=== PATIENT | male | born 1960 | race African-American/Black ===

== ENCOUNTER 2021-09-12 12:04 | Emergency (ER) | payer OTHER ==
[~2021-09-12] VITALS: Ht 177.8 cm; Wt 100.0 kg
[2021-09-12] MEDS ORDERED: CRESTOR40 MG PO (12:13)
[2021-09-12] MEDS ORDERED: HYDROCHLOROT25 MG PO (12:13)
[2021-09-12] MEDS ORDERED: ZANTAC 36010 MG PO (12:14)
[2021-09-12] MEDS ORDERED: TYLENOL500 MG PO (12:15)
[2021-09-12 12:50] LABS: HEMATOCRIT 50.7 % (39.0-50.0); HEMOGLOBIN 16.4 g/dl (14.0-18.0); IMMATURE GRANULOCYTES 0.6 % (0.0-5.0); MEAN CORPUSCULAR HGB 30.1 pG CALC (26.0-32.0); MEAN CORPUSCULAR HGB CONC 32.3 g/dL CAL (32.0-36.0); NEUT# 3.05 thou/uL (1.82-7.42); RED BLOOD COUNT 5.45 mill/uL (4.70-6.10); RED CELL DISTRI WIDTH 12.9 % (11.5-15.5)
[2021-09-12 13:08] LABS: ALBUMIN 4.4 g/dL (3.2-5.0); ALKALINE PHOSPHATASE 85 u/l (38-126); ANION GAP 11 (6-22 (CALC)); BILIRUBIN, TOTAL 0.7 mg/dL (0.0-1.4); BUN 13 mg/dL (9-20); BUN/CREATININE RATIO 12 (12-20 (CALC)); CARBON DIOXIDE 31 mmol/l (22-30); CHLORIDE 100 mmol/l (95-108); GFR > 60 ML/MIN (>=60 (CALC)); GFR FOR AFR.AMER. > 60 ML/MIN (>=60 (CALC)); LIPASE 97 u/l (23-300); POTASSIUM 3.9 mmol/l (3.5-5.1); SGOT/AST 42 u/l (17-59); SODIUM 138 mmol/l (137-146); TOTAL PROTEIN 8.2 g/dL (6.3-8.2)
[2021-09-12 17:53] VITALS: BP 124/75
== END 2021-09-12 18:04 | DRG 313 ==
LOC: ED 12:04
PROVIDERS: Emergency Medicine
DX: R07.9 Chest pain, unspecified (principal); I10 Essential (primary) hypertension; I25.2 Old myocardial infarction; E78.00 Pure hypercholesterolemia, unspecified; Z20.822 Contact with and (suspected) exposure to COVID-19